=== PATIENT | male | born 1995 | race Caucasian/White ===

== ENCOUNTER 2023-05-18 13:06 | Emergency (ER) | payer SELFPAY ==
[2023-05-18] MEDS ORDERED: Cephalexin 500 MG CAP ONE (13:45)
[2023-05-18] MEDS ORDERED: Bacitracin 1 PK ONE (13:45)
== END 2023-05-18 14:03 | disposition home or self-care (01) ==
LOC: MADERS 13:06
DX: S61.012A Laceration without foreign body of left thumb without damage to nail, initial encounter (principal); W26.9XXA Contact with unspecified sharp object(s), initial encounter